=== PATIENT | female | born 1995 | race Two or more races ===

== ENCOUNTER 2017-03-21 14:00 | Emergency (ER) | payer MEDICAID ==
[~2017-03-21] VITALS: Ht 167.6 cm; Wt 63.5 kg
[~2017-03-21 14:00] MED LIST: NORPTMEDS CO
[2017-03-21 16:08] LABS: Urine Bacteria NONE SEEN /hpf (None Seen); Urine Blood 1+ /uL (Negative); Urine Mucus FEW (None Seen); Urine Specific Gravity 1.023 (1.001-1.035); Urine WBC <1 /hpf (0 - 5)
[2017-03-21 20:12] VITALS: BP 115/70
== END 2017-03-21 20:54 | disposition home or self-care (01) ==
LOC: ER 14:00
DX: N83.209 Unspecified ovarian cyst, unspecified side (principal)
CPT/HCPCS: 76856; 81001; 81025